=== PATIENT | female | born 1970 | race Caucasian/White ===

== ENCOUNTER 2017-01-29 11:54 | Emergency (ER) | payer BC, OTHER ==
[~2017-01-29] VITALS: Ht 170.2 cm; Wt 81.8 kg
[2017-01-29 11:54] VITALS: BP 122/67
[2017-01-29] MEDS ORDERED: DOXY100C37 PO (12:03)
[2017-01-29] MEDS ORDERED: TYLE325T5 PO (12:04)
[2017-01-29] MEDS ORDERED: BACT800T5 PO (13:10)
[2017-01-29] MEDS ORDERED: cefTRIAXone SOD 1 GM VIAL (J0696) IM ONE (13:15)
[2017-01-29] MEDS ORDERED: NEOSPORIN OINT 0.9 GM PKT (FLOOR STOCK) TOP ONE (13:15)
== END 2017-01-29 13:52 | disposition home or self-care (01) ==
LOC: M ED 11:54
DX: L03.116 Cellulitis of left lower limb (principal)
CPT/HCPCS: 96372; 99282; J0696

== ENCOUNTER → 2018-06-10 | Outpatient (REF) | payer OTHER ==
[~2018-06-10] MED LIST: BACT800T5 PO; DOXY100C37 PO; TYLE325T5 PO
[2018-06-12 14:21] LABS: HPV HYBRID CAPTURE II Negative (Negative)
== END ==
LOC: M SFHCWAGY 13:18
PROVIDERS: ATTEND Nurse Practitioner Women's Health
DX: Z12.4 Encounter for screening for malignant neoplasm of cervix (principal)
CPT/HCPCS: 87624; G0123

== ENCOUNTER → 2018-06-10 | Outpatient (CLI) | payer BC ==
--- NOTE | 2018-06-10 16:17 | REPMRS ---
Patient History The patient states she had a clinical breast exam in 06/2018. No known family history of cancer. Took hormonal contraceptives for 20 years beginning at age 19. 3D TOMOSYNTHESIS WAS PERFORMED. Digital Woman Screen Mammo: June 10, 2018 - Exam #: [id number] Bilateral CC and MLO view(s) were taken. Technologist: Gabriela Richmond Technologist Prior study comparison: January 27, 2017, digital woman screen mammo performed at [facility]. February 27, 2015, digital woman screen mammo performed at [facility]. FINDINGS: The breast tissue is heterogeneously dense. This may lower the sensitivity of mammography. There has been no change in the appearance of the mammogram from the prior studies. There is a moderate amount of residual fibroglandular tissue which is fairly symmetric. There is no interval development of dominant mass, areas of architectural distortion, or clustered microcalcification typical of malignancy. Assessment: BI-RADS/ACR category 1 mammogram. Negative Mammogram. Recommendation Routine screening mammogram in 1 year (for women over age 40). This mammogram was interpreted with the aid of an FDA-approved computer-aided dectection system. Electronically Signed By: Esau Almanza MD 06/10/18 [id number]
== END ==
LOC: M WHC 11:11
PROVIDERS: ATTEND Nurse Practitioner Women's Health
DX: Z12.31 Encounter for screening mammogram for malignant neoplasm of breast (principal); Z92.0 Personal history of contraception

== ENCOUNTER → 2020-04-14 | Outpatient (CLI) | payer SELFPAY | LOC: M LABSMTC 10:52 | PROVIDERS: ATTEND Pediatrics | DX: Z20.822 Contact with and (suspected) exposure to COVID-19 (principal) ==

== ENCOUNTER → 2021-03-20 | Outpatient (CLI) | payer BC, OTHER ==
[~2021-03-20] MED LIST changes: +DOXY-443 PO; -DOXY100C37 PO
--- NOTE | 2021-03-20 11:58 | REPMRS ---
Patient History The patient states she had a clinical breast exam in March 2021. No known family history of cancer. Took hormonal contraceptives for 20 years beginning at age 19. 10-15 lb unintentional weight gain. Pt denied . Covid vaccines 06/2020 right arm. 08/2020 left arm. Patient states no breast complaints today. Patient has signed MRS History Sheet. Digital Woman Screen Mammo: March 20, 2021 - Exam #: [id number] Bilateral CC and MLO view(s) were taken. Technologist: RT Rachel Prior study comparison: June 10, 2018, bilateral digital woman screen mammo performed at [facility]. January 27, 2017, digital woman screen mammo performed at [facility]. FINDINGS: There are scattered fibroglandular densities. Screening. Digital screening (2D) mammography was performed bilaterally in the CC and MLO projections. Additionally, breast tomosynthesis (3D mammography) was performed bilaterally in the CC and MLO projections. Todays exam was compared to the prior exam/exams. By history, the patient has no complaints of a palpable breast abnormality or other significant breast complaints. The breasts are unchanged in size and shape. There are no gurpreet-soft tissue densities or spiculated masses. There is no internal architectural distortion. There are no suspicious gurpreet-calcific clusters. Skin thickening or nipple retraction is not present. IMPRESSION: BI-RADS Category 2- Benign Findings. There is no evidence of malignant alteration of the breasts. Followup examination recommended in one year. The Volpara volumetric breast density category is B, there are scattered areas of fibroglandular densities. This mammogram was read with the assistance of [facility] [employer],an FDA approved computer aided detection system for mammography. The lifetime Tyrer-Cuzick score is 11.8 % Negative x-ray reports should not delay surgical consultation if a dominant or clinically suspicious mass is present. Not all breast cancers can be identified by mammography. Therefore, we recommend that you continue to perform regular breast self-examination and physical examination and then promptly contact your physician of any concerns or changes. Adenosis and dense breasts may obscure an underlying neoplasm. Assessment: BI-RADS/ACR category 2 mammogram. Benign Findings. Recommendation Routine screening mammogram of both breasts in 1 year. Electronically Signed By: Gerardo Wagner, DO 03/20/21 [id number]
== END ==
LOC: M WHC 10:17
PROVIDERS: ATTEND Nurse Practitioner Women's Health
DX: Z12.31 Encounter for screening mammogram for malignant neoplasm of breast (principal)

== ENCOUNTER → 2021-03-20 | Outpatient (REF) | payer OTHER | LOC: M SFHCWAGY 13:29 | PROVIDERS: ATTEND Nurse Practitioner Women's Health | DX: Z12.4 Encounter for screening for malignant neoplasm of cervix (principal) | CPT/HCPCS: 87624; G0123 ==

== ENCOUNTER → 2022-04-21 | Outpatient (CLI) | payer BC, OTHER ==
[~2022-04-21] MED LIST changes: +ACET32TAB PO; +IBUP200C27 PO
== END ==
LOC: M OPP 10:32
PROVIDERS: ATTEND Anesthesiology
DX: Z20.822 Contact with and (suspected) exposure to COVID-19 (principal)

== ENCOUNTER 2022-04-25 09:42 | Day surgery (SDC) | payer BC, OTHER ==
[~2022-04-25] VITALS: Ht 172.7 cm; Wt 88.0 kg
[~2022-04-25 09:42] MED LIST changes: +NS 1,000 ML IV ONE
[2022-04-25] MEDS ORDERED: LIDOCAINE 2% 100MG/5ML SDV (FOR ANES.) As Ordered ONE ×2 (10:17→10:38)
[2022-04-25] MEDS ORDERED: propofoL 200 MG/20 ML VIAL As Ordered ONE ×2 (10:17→10:38)
[2022-04-25 11:02] VITALS: BP 100/54
== END 2022-04-25 11:03 | disposition home or self-care (01) ==
LOC: M OPP 09:42
PROVIDERS: ATTEND Surgery
DX: Z12.11 Encounter for screening for malignant neoplasm of colon (principal); D12.5 Benign neoplasm of sigmoid colon; Z79.1 Long term (current) use of non-steroidal anti-inflammatories (NSAID); Z86.718 Personal history of other venous thrombosis and embolism

== ENCOUNTER → 2022-07-22 | Outpatient (REF) | payer BC, OTHER ==
[~2022-07-22] MED LIST changes: -NS 1,000 ML IV ONE
== END ==
LOC: M SFHCWAGY 17:29
PROVIDERS: ATTEND Nurse Practitioner Family
DX: Z12.4 Encounter for screening for malignant neoplasm of cervix (principal)
CPT/HCPCS: 87624; G0123

== ENCOUNTER → 2022-07-22 | Outpatient (CLI) | payer BC, OTHER | LOC: M WHC 13:49 | PROVIDERS: ATTEND Nurse Practitioner Family | DX: Z12.31 Encounter for screening mammogram for malignant neoplasm of breast (principal) ==

== ENCOUNTER → 2023-07-24 | Outpatient (REF) | payer BC | LOC: M SFHCWAGY 17:09 | PROVIDERS: ATTEND Nurse Practitioner Family | DX: Z12.4 Encounter for screening for malignant neoplasm of cervix (principal) | CPT/HCPCS: 87624; G0123 ==

== ENCOUNTER → 2023-07-24 | Outpatient (CLI) | payer BC | LOC: M WHC 11:27 | PROVIDERS: ATTEND Nurse Practitioner Family | DX: Z12.31 Encounter for screening mammogram for malignant neoplasm of breast (principal) ==

== ENCOUNTER → 2023-08-12 | Outpatient (CLI) | payer BC ==
[~2023-08-12] MED LIST changes: +DOXY-323 PO; -DOXY-443 PO
== END ==
LOC: M WHC 06:45
PROVIDERS: ATTEND Nurse Practitioner Family
DX: N95.0 Postmenopausal bleeding (principal); D25.9 Leiomyoma of uterus, unspecified; N83.202 Unspecified ovarian cyst, left side

== ENCOUNTER → 2023-10-27 | Outpatient (REF) | payer BC | LOC: M PLALAB 16:08 | PROVIDERS: ATTEND Obstetrics & Gynecology | DX: N95.0 Postmenopausal bleeding (principal) ==

== ENCOUNTER 2024-06-01 09:16 | Day surgery (SDC) | payer BC ==
[~2024-06-01] VITALS: Ht 172.7 cm; Wt 96.9 kg
[~2024-06-01 09:16] MED LIST changes: +ASCO100013 PO; +CYAN-11 PO; -DOXY-323 PO; +DOXY-441 PO; +KETOROLAC 60MG 2ML VIAL As Ordered ONE; +LIDOCAINE 2% 100MG/5ML SDV (FOR ANES.) As Ordered ONE; +MELO15TA28 PO; +ONDANSETRON 4MG 2ML VIAL As Ordered ONE; +VITA100093 PO; +propofoL 200 MG/20 ML VIAL As Ordered ONE
[2024-06-01] MEDS ORDERED: fentaNYL 100 MCG/2 ML INJECTION As Ordered ONE (09:58)
[2024-06-01] MEDS ORDERED: MIDAZOLAM INJ 2MG/2ML VIAL As Ordered ONE (09:58)
[2024-06-01] MEDS ORDERED: LR 1,000 ML IV ONE (10:00)
[2024-06-01] MEDS ORDERED: NS (Normal Saline) 0.9% 1,000 ML IV SCH ×2 (10:00→12:10)
[2024-06-01] MEDS ORDERED: ACETAMINOPHEN 1000MG/100ML IV BAG As Ordered ONE (11:35)
[2024-06-01] MEDS ORDERED: ONDANSETRON 4MG 2ML VIAL IV PRN (12:10)
[2024-06-01] MEDS ORDERED: oxyCODONE 5MG TAB PO PRN (12:10)
[2024-06-01] MEDS ORDERED: fentaNYL 100 MCG/2 ML INJECTION IV PRN (12:10)
[2024-06-01] MEDS ORDERED: HYDROMORPHONE HCL 0.5 MG/ 0.5 ML SYRINGE IV PRN (12:10)
[2024-06-01] MEDS ORDERED: LR 1,000 ML IV SCH (12:30)
[2024-06-01 13:40] VITALS: BP 127/72; TEMP 96.8; O2SAT 98
[2024-06-01] MEDS ORDERED: ACETAMINOPHEN *IV* 1,000 MG in IV 1 EA IV ONE (18:00)
== END 2024-06-01 13:45 | disposition home or self-care (01) ==
LOC: M SDC 09:16
PROVIDERS: ATTEND Specialist
DX: N95.0 Postmenopausal bleeding (principal); Z86.718 Personal history of other venous thrombosis and embolism; Z90.49 Acquired absence of other specified parts of digestive tract
CPT/HCPCS: 58558; 81025; 88305; 93005; J0131; J1100; J1885; J2250; J2405; J3010

== ENCOUNTER → 2024-12-15 | Outpatient (CLI) | payer BC ==
[~2024-12-15] MED LIST changes: -KETOROLAC 60MG 2ML VIAL As Ordered ONE; -LIDOCAINE 2% 100MG/5ML SDV (FOR ANES.) As Ordered ONE; -ONDANSETRON 4MG 2ML VIAL As Ordered ONE; -propofoL 200 MG/20 ML VIAL As Ordered ONE
[2024-12-18 13:57] LABS: HPV APTIMA Not Detected (Not Detected)
== END ==
LOC: M WHC 15:00
PROVIDERS: ATTEND Nurse Practitioner Family
DX: Z12.31 Encounter for screening mammogram for malignant neoplasm of breast (principal)